=== PATIENT | male | born 1955 | race Caucasian/White ===

== ENCOUNTER 2024-05-26 22:02 | Emergency (ER) | payer OTHER, SELFPAY ==
[2024-05-26 22:04] VITALS: BP 201/92
[2024-05-26 22:15] VITALS: BP 218/94
--- NOTE | 2024-05-26 22:16 | ED.GENMED ---
History of Present Illness
General
Chief Complaint: Blood Pressure Problem
Time Seen by Provider: 05/26/24 22:11
History of Present Illness
History of Present Illness:
68-year-old male presenting to the emergency department for elevated blood pressure. Patient reports throughout the day he has been feeling generally unwell, and has been checking his blood pressure, and has had elevated numbers. Denies known
history of high blood pressure. He reports some fatigue and lightheadedness. He felt particularly lightheaded this morning. This evening he was flushed, checked blood pressure, and it was 190/98. She gave him one of her blood pressure
medications. He denies associated chest pain, difficulty breathing, abdominal pain, weakness or numbness to the extremities. Denies fever or systemic symptoms. He denies headache. He denies additional acute medical complaints.
Past History
Social History
Tobacco: Non-smoker
Personal:
Phy Exam
Physical Exam
Physical Exam:
General: Well-appearing, no clinical signs of dehydration, nontoxic and in no acute distress
HEENT: protecting airway
Neck: appears supple
CV: Normal heart rate, regular rhythm
Resp: No accessory muscle use, no increased work of breathing, lungs clear to auscultation bilaterally
Abd: Soft and non-distended, no tenderness to palpation
Extremities: No deformities, no swelling, no erythema
Neuro: alert, no focal neurologic deficit
: deferred
Rectal: deferred
Psych: Normal affect
Skin: Intact
Course
Orders/Labs/Results
Orders:
Orders
05/26/24 22:26
Electrocardiogram (*1) Stat
Reason for Study: Hypertension, Benign
Electrocardiogram (*1) Urgent
EKG- Treatment ONCE
05/26/24 22:32
Labetalol HCl [Trandate] 20 mg IV NOW STA
05/26/24 22:33
CBC/With Diff [Complete Blood Count/With Diff] Urgent
CMP [Comprehensive Metabolic Panel] Urgent
05/26/24 22:39
HydrALAZINE [Apresoline] 10 mg IV NOW STA
Abnormal Lab Results
05/26/24
22:33
Absolute Monos (auto) 0.8 H 10^3/uL
(0.1-0.6)
Glucose 108 H mg/dl
(70-99)
05/26/24 22:33
05/26/24 22:33
Vital Signs
Initial and Last Documented VS:
Initial Vital Signs
Temp Pulse Resp BP Pulse Ox
97.9 F 56 20 201/92 97
05/26/24 22:04 05/26/24 22:04 05/26/24 22:04 05/26/24 22:04 05/26/24 22:04
Last Documented Vital Signs
Temp Pulse Resp BP Pulse Ox
97.9 F 53 11 166/74 95
05/26/24 22:04 05/26/24 22:49 05/26/24 22:49 05/26/24 22:49 05/26/24 22:49
MDM/Problems Addressed
MDM/Problems Addressed:
68-year-old male with no underlying history of high blood pressure presenting for elevated blood pressure. Blood pressure in the emergency department is elevated.
On examination, patient is well-appearing, no acute distress or discomfort. Patient is relatively asymptomatic, notes that he is feeling generally unwell, however denies specific symptoms such as chest pain breathing. No focal neurologic deficits
on exam, without concern for central neurologic process such as CVA. Without concern for aortic catastrophe, without symptoms. At this time suspect underlying diagnosis of hypertension. Lower suspicion for hypertensive urgency or emergency. Will
screen with laboratory analysis to ensure no endorgan dysfunction. Will obtain EKG. Will administer antihypertensive medication.
23:30 - Blood pressure has improved. EKG without acute ischemic abnormality. Labs are unremarkable. Again without concern for hypertensive urgency or emergency. Suspect underlying hypertension. Feel stable for discharge. Given presenting
pressure, will start on low-dose antihypertensive medication, however expressed importance of close follow-up with primary care doctor for blood pressure recheck and medication management. Return precautions discussed and patient verbalized
understanding.
*EKG
Interpreted by ED Provider?: Yes
EKG Intrepretation Date: 05/26/24
EKG Intrepretation Time: 22:52
Interpretation: normal
Comparison EKG: no comparison EKG present
Heart Rate: 63
Rate: normal
Rhythm: sinus
[place]: normal axis
Interval: normal interval
QRS Pattern: normal QRS
Ischemia: no ischemia
*Critical Care Note
Total Time (30-74mins, 75-104mins- exclusive of procedures): Not Applicable
ED Attending Note
-
Portions of this chart may have been created with voice recognition software.� Occasional wrong word or��sound alike� substitutions may have occurred due to the inherent limitations of voice recognition software.
Discharge Plan
Departure
Patient with high blood pressure during this ER visit?: Yes
Condition: Good
Discharge Problem:
Hypertension
Instructions: High Blood Pressure (DC)
Activity Restrictions/Additional Instructions:
You were seen in the emergency department for elevated blood pressure
You were found to have normal blood work and EKG. You were started on amlodipine for your elevated blood pressure.
Please follow-up closely with your primary care physician for blood pressure recheck in medication management.
Return to the emergency department for any worsening of your symptoms, or any development of chest pain, difficulty breathing, abdominal pain with persistent vomiting and inability to tolerate food or liquid by mouth (concern for dehydration),
weakness or numbness to your extremities, headache or confusion, visual changes, fever greater than 100.4, or any additional symptoms that are concerning to you.
Thank you for choosing [facility].
Interventions
Interventions:
*General Assessment Last Done: 05/26/24 22:04
ED- Cardiac Assessment Last Done: 05/26/24 22:57
ED- Neurological Assessment Last Done: 05/26/24 22:57
ED- Pulmonary Assessment Last Done: 05/26/24 22:57
Discharge Date and Time
Print Language: [id number]
[2024-05-26 22:20] VITALS: BP 202/85
[2024-05-26 22:41] LABS: % Basophils 0.6 % (0-2); % Eosinophils 2.5 % (0-6); % Immature Granulocytes 0.2 % (0-0.5); % Monocytes 9.2 % (1.7-9.3); % Neutrophils 59.5 % (42.2-75.2); Absolute Basophils 0.1 10^3/uL (0-0.2); Absolute Eosinophils 0.2 10^3/uL (0-0.7); Absolute Lymphocytes 2.5 10^3/uL (1.2-3.4); Absolute Monocytes 0.8 10^3/uL (0.1-0.6); Absolute Neutrophils 5.3 10^3/uL (1.4-6.5); Hematocrit 42.2 % (39.0-52.0); Hemoglobin 14.6 g/dL (13.0-18.0); Mean Corp Hgb Conc. 34.6 g/dL (33.0-37.0); Mean Corpuscular Hgb 29.9 pg (27.0-31.0); Mean Corpuscular Volume 86.3 fL (80.0-94.0); Mean Platelet Volume 9.7 fL (7.4-10.4); Nucleated Red Blood Cells % 0 % (-); Platelet Count 279 10^3/uL (130-400); Red Blood Cell Count 4.89 10^6/uL (4.70-6.10); Red Cell Dist. Width 12.7 % (11.5-14.5); White Blood Cell Count 8.9 10^3/uL (4.8-10.8)
[2024-05-26] MEDS: APRESOLINE 10 MG IV (22:44)
[2024-05-26 22:49] VITALS: BP 166/74
[2024-05-26 23:00] VITALS: BP 159/71
[2024-05-26 23:06] LABS: ALT (SGPT) 30 U/L (0-50); AST (SGOT) 34 U/L (17-59); Albumin 4.2 g/dl (3.5-5.0); Alkaline Phosphatase 90 U/L (38-126); Blood Urea Nitrogen 17 mg/dl (9-20); Calcium 9.9 mg/dl (8.4-10.2); Carbon Dioxide 24 mmol/L (22-30); Chloride 104 mmol/L (98-107); Glucose 108 mg/dl (70-99); Potassium 3.9 mmol/L (3.5-5.1); Sodium 139 mmol/L (135-145); Total Bilirubin 0.4 mg/dl (0.2-1.3); Total Protein 6.7 g/dl (6.3-8.2); eGFR > 60.00
[2024-05-26 23:20] VITALS: BP 158/74
== END 2024-05-27 00:08 | disposition home or self-care (01) ==
LOC: EMR 22:02
PROVIDERS: EMERGENCY PHYSICIAN Student in an Organized Health Care Education/Training Program; FAMILY PHYSICIAN Internal Medicine
DX: I10 Essential (primary) hypertension (principal)
CPT/HCPCS: 99284; 96374; 96375; 80053; 85025; 93005

== ENCOUNTER → 2025-01-13 07:09 | Outpatient (REF) | payer OTHER, SELFPAY ==
[2025-01-13 07:55] LABS: % Basophils 0.9 % (0-2); % Eosinophils 2.3 % (0-6); % Immature Granulocytes 0.3 % (0-0.5); % Monocytes 9.3 % (1.7-9.3); % Neutrophils 65.2 % (42.2-75.2); Absolute Basophils 0.1 10^3/uL (0-0.2); Absolute Eosinophils 0.2 10^3/uL (0-0.7); Absolute Lymphocytes 1.7 10^3/uL (1.2-3.4); Absolute Monocytes 0.7 10^3/uL (0.1-0.6); Absolute Neutrophils 4.9 10^3/uL (1.4-6.5); Hematocrit 42.8 % (39.0-52.0); Hemoglobin 14.1 g/dL (13.0-18.0); Mean Corp Hgb Conc. 32.9 g/dL (33.0-37.0); Mean Corpuscular Hgb 29.1 pg (27.0-31.0); Mean Corpuscular Volume 88.4 fL (80.0-94.0); Mean Platelet Volume 9.5 fL (7.4-10.4); Nucleated Red Blood Cells % 0 % (-); Platelet Count 260 10^3/uL (130-400); Red Blood Cell Count 4.84 10^6/uL (4.70-6.10); Red Cell Dist. Width 13.3 % (11.5-14.5); White Blood Cell Count 7.5 10^3/uL (4.8-10.8)
[2025-01-13 08:45] LABS: Blood Urea Nitrogen 20 mg/dl (9-20); Calcium 9.7 mg/dl (8.4-10.2); Carbon Dioxide 25 mmol/L (22-30); Chloride 110 mmol/L (98-107); Glucose 98 mg/dl (70-99); Potassium 4.5 mmol/L (3.5-5.1); Sodium 143 mmol/L (135-145); eGFR > 60.00
== END ==
LOC: REG 07:09
PROVIDERS: ATTENDING PHYSICIAN Orthopaedic Surgery
DX: Z01.818 Encounter for other preprocedural examination (principal)
CPT/HCPCS: 36415; 80048; 85025; 93005

== ENCOUNTER 2025-02-18 16:28 | Outpatient (RCR) | payer OTHER, SELFPAY | END 2025-02-18 23:59 | disposition home or self-care (01) | LOC: RPT 16:28 | PROVIDERS: ATTENDING PHYSICIAN Orthopaedic Surgery; FAMILY PHYSICIAN Internal Medicine | DX: Z47.1 Aftercare following joint replacement surgery (principal); Z96.652 Presence of left artificial knee joint; Z73.6 Limitation of activities due to disability | CPT/HCPCS: 97010; 97110; 97162 ==

== ENCOUNTER 2025-03-18 06:48 | Outpatient (RCR) | payer OTHER, SELFPAY | END 2025-03-18 23:59 | disposition home or self-care (01) | LOC: RPT 06:48 | PROVIDERS: ATTENDING PHYSICIAN Orthopaedic Surgery; FAMILY PHYSICIAN Internal Medicine | DX: Z47.1 Aftercare following joint replacement surgery (principal); Z96.652 Presence of left artificial knee joint; Z73.6 Limitation of activities due to disability | CPT/HCPCS: 97010; 97110; 97140; 97530 ==

== ENCOUNTER → 2025-06-22 07:19 | Outpatient (REF) | payer OTHER, SELFPAY ==
[2025-06-22 08:22] LABS: Hematocrit 48.8 % (39.0-52.0); Hemoglobin 15.5 g/dL (13.0-18.0); Mean Corp Hgb Conc. 31.8 g/dL (33.0-37.0); Mean Corpuscular Volume 89.7 fL (80.0-94.0); Nucleated Red Blood Cells % 0 % (-); Platelet Count 253 10^3/uL (130-400); Red Cell Dist. Width 14.1 % (11.5-14.5)
[2025-06-22 09:01] LABS: Blood Urea Nitrogen 16 mg/dl (9-20); Calcium 9.6 mg/dl (8.4-10.2); Carbon Dioxide 29 mmol/L (22-30); Chloride 104 mmol/L (98-107); Glucose 92 mg/dl (70-99); Potassium 4.4 mmol/L (3.5-5.1); Sodium 138 mmol/L (135-145); eGFR > 60.00
== END ==
LOC: RCS 07:19
PROVIDERS: ATTENDING PHYSICIAN Orthopaedic Surgery; FAMILY PHYSICIAN Internal Medicine
DX: Z01.818 Encounter for other preprocedural examination (principal)
CPT/HCPCS: 36415; 80048; 85025; 93005

== ENCOUNTER 2025-07-22 06:28 | Outpatient (RCR) | payer OTHER, SELFPAY | END 2025-07-22 23:59 | disposition home or self-care (01) | LOC: RPT 06:28 | PROVIDERS: ATTENDING PHYSICIAN Student in an Organized Health Care Education/Training Program; FAMILY PHYSICIAN Internal Medicine | DX: Z47.1 Aftercare following joint replacement surgery (principal); M17.11 Unilateral primary osteoarthritis, right knee; Z73.6 Limitation of activities due to disability; R26.2 Difficulty in walking, not elsewhere classified; M25.561 Pain in right knee; M62.81 Muscle weakness (generalized); Z96.651 Presence of right artificial knee joint | CPT/HCPCS: 97010; 97110; 97161 ==